=== PATIENT | female | born 1970 | race African-American/Black ===

== ENCOUNTER 2018-09-04 11:35 | Emergency (ER) | payer BC ==
[~2018-09-04] VITALS: Ht 170.2 cm; Wt 84.2 kg
[2018-09-04] MEDS ORDERED: SODIUM CHLORIDE 0.9% 500ML 500 ML IV STA (11:41)
[2018-09-04] MEDS ORDERED: DIPHENHYDRAMINE HCL INJ 50 MG/ML VIAL IV ONE (11:45)
[2018-09-04] MEDS ORDERED: KETOROLAC TROMETHAMINE 30 MG/ML VIAL IV ONE (11:45)
[2018-09-04] MEDS ORDERED: PROMETHAZINE 25MG/ NS 50ML (IV) IV ONE (11:45)
[2018-09-04] MEDS ORDERED: ACETAMINOPHEN 325 MG TAB PO ONE (11:45)
[2018-09-04] MEDS ORDERED: DEXAMETHASONE SOD PHOS 10 MG/1 ML VIAL IV NR (11:45)
[2018-09-04] MEDS ORDERED: NIFEDIPINE ER30 M1 (11:56)
[2018-09-04] MEDS ORDERED: CLONIDINE HCL0.2 MG (11:56)
[2018-09-04] MEDS ORDERED: PROMETHAZINE HCL (IM) 25 MG/ML VIAL ONE (12:11)
[2018-09-04] MEDS ORDERED: KETOROLAC TROMETHAMINE 30 MG/ML VIAL ONE (12:11)
[2018-09-04] MEDS ORDERED: DEXAMETHASONE 10MG/ML PF INJ ONE (12:11)
[2018-09-04] MEDS ORDERED: DIPHENHYDRAMINE HCL INJ 50 MG/ML VIAL ONE (12:11)
[2018-09-04] MEDS ORDERED: ACETAMINOPHEN 325 MG TAB ONE (12:12)
[2018-09-04] MEDS ORDERED: SODIUM CHLORIDE 0.9% 500ML 500 ML ONE (12:12)
[2018-09-04] MEDS ORDERED: SODIUM CHLORIDE 0.9% 50ML 50 ML ONE (12:12)
--- NOTE | 2018-09-04 12:22 | Diagnostic Imaging Report ---
CT BRAIN [facility] HISTORY: Headache COMPARISON: None. TECHNIQUE: Noncontrast axial scans were obtained from skull base to the vertex. Coronal and sagittal reconstructions obtained from the axial data. One or more of the following dose reduction techniques were used: Automated exposure control, adjustment of the mA and/or kV according to patient size, and/or utilization of iterative reconstruction technique. DISCUSSION: Scalp/Skull: Unremarkable. Brain sulci: Appropriate for patient's age. Ventricles: Normal in size and configuration. No hydrocephalus. Extra-axial spaces: No masses or fluid collections. Parenchyma: No abnormal densities. No mass, hemorrhage, or large vascular territory acute infarct. Dural sinuses: No abnormal densities. Sellar/Suprasellar region: Intact. Skull base: Intact. 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 This lesion abuts the posterior left infraorbital canal. IMPRESSION: 1. No acute intracranial abnormalities. 2. 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 An unerupted tooth is embedded within this lesion. Signed by: Dr. Zaki Tineo M.D. on 09/04/2018 12:19 PM
[2018-09-04 13:10] VITALS: BP 176/89
== END 2018-09-04 13:18 | disposition home or self-care (01) ==
LOC: FSED 11:35
DX: G44.011 Episodic cluster headache, intractable (principal); I10 Essential (primary) hypertension
CPT/HCPCS: 70450; 80053; 81003; 85025; 96374; 96375; 99284; J1200; J1885; J2550; J7040